=== PATIENT | female | born 1975 | race Caucasian/White ===

== ENCOUNTER 2018-05-13 17:11 | Emergency (ER) | payer OTHER ==
[~2018-05-13] VITALS: Ht 160 cm; Wt 61.2 kg
[~2018-05-13 17:11] MED LIST: ? ANTIBIOTIC; BACTRIM DS TAB1 EACH PO; BUPRENORPHIN-N1 EACH SL; IBUPROFEN 800800 M1 PO; KEFLEX500 MG PO; NORCO 5-325 TA1 EACH PO; NORFLEX100 MG PO; ROBAXIN500 MG PO; XANAX 0.5 MG0.5 M1 PO
[2018-05-13] MEDS ORDERED: ADDERALL 20 MG20 MG PO (17:38)
[2018-05-13 18:35] VITALS: BP 135/85
== END 2018-05-13 18:36 | disposition home or self-care (01) ==
LOC: M.ERS 17:11
DX: S61.411A Laceration without foreign body of right hand, initial encounter (principal); W25.XXXA Contact with sharp glass, initial encounter; Y92.89 Other specified places as the place of occurrence of the external cause; Y93.G1 Activity, food preparation and clean up; Y99.8 Other external cause status

== ENCOUNTER 2018-05-15 13:20 | Emergency (ER) | payer OTHER ==
[~2018-05-15] VITALS: Ht 160 cm; Wt 61.2 kg
[~2018-05-15 13:20] MED LIST changes: +ADDERALL 20 MG20 MG PO
[2018-05-15] MEDS ORDERED: KEFLEX500 M1 PO (13:44)
[2018-05-15 13:55] VITALS: BP 151/90
== END 2018-05-15 13:56 | disposition home or self-care (01) ==
LOC: M.ERS 13:20
DX: S61.411D Laceration without foreign body of right hand, subsequent encounter (principal); X58.XXXD Exposure to other specified factors, subsequent encounter

== ENCOUNTER 2021-02-24 21:14 | Emergency (ER) | payer OTHER, MEDICAID ==
[~2021-02-24] VITALS: Ht 157.5 cm; Wt 61.2 kg
[~2021-02-24 21:14] MED LIST changes: +KEFLEX500 M1 PO
[2021-02-24] MEDS ORDERED: XANAX 0.5 MG0.5 M1 PO (21:42)
[2021-02-24 22:17] LABS: URINE BILIRUBIN NEGATIVE (Negative); URINE BLOOD 3+ (Negative); URINE COLOR YELLOW; URINE GLUCOSE-RANDOM NEGATIVE (Negative); URINE KETONES NEGATIVE (Negative); URINE PROTEIN 1+ (Negative); URINE UROBILINOGEN 0.2 E.U./dl (0.2-1.0)
[2021-02-24 22:18] LABS: URINE CLARITY CLOUDY; URINE LEUKOCYTES-REFLEX 3+ (Negative); URINE NITRITE-REFLEX POSITIVE (Negative)
[2021-02-24 22:24] LABS: ABSOLUTE BASOPHILS 0.1 thou/uL (0.0-0.2); ABSOLUTE EOSINOPHILS 0.2 thou/uL (0.0-0.7); ABSOLUTE LYMPHOCYTES 2.9 thou/uL (0.8-5.3); ABSOLUTE MONOCYTES 0.5 thou/uL (0.0-1.2); ABSOLUTE NEUTROPHILS 4.9 thou/uL (1.6-8.1); BASOPHILS 0.8 %; EOSINOPHILS 2.8 %; HEMOGLOBIN 14.6 gm/dL (12.0-15.0); LYMPHOCYTES 33.9 %; MCH 29.9 pg (26.0-34.0); MCHC 34.8 g/dL (28.0-37.0); MCV 85.8 fL (80.0-100.0); MONOCYTES 5.2 %; NUCLEATED RBCS 0 /100WBC; PLATELET COUNT* 251 thou/uL (150-400); POLYS 57.3 %; RDW-CV 13.6 % (10.5-14.5); WBC 8.6 thou/uL (4.0-11.0)
[2021-02-24 22:29] LABS: SQUAMOUS 4-10 Moderate /LPF (0-3)
[2021-02-24 22:30] LABS: BACTERIA-REFLEX >30 Many /HPF (None Seen); CASTS None Seen /LPF (None Seen); CRYSTALS None Seen /LPF (None Seen); URINE RBC 3-10 Few /HPF (0-2); URINE WBC-REFLEX >25 Many /HPF (0-5)
[2021-02-24 22:33] LABS: AMP/METHAMP Negative (Negative); BARBITURATES Negative (Negative); BENZODIAZEPINES Negative (Negative); COCAINE POSITIVE (Negative); METHADONE Negative (Negative); OPIATES Negative (Negative); PCP Negative (Negative); THC Negative (Negative)
[2021-02-24 23:10] LABS: CALCIUM 8.7 mg/dL (8.5-10.1); CREATININE 0.9 mg/dL (0.6-1.3); POTASSIUM 3.4 mmol/L (3.5-5.1)
[2021-02-24] MEDS ORDERED: AUGMENTIN 500-1 EACH PO (23:14)
[2021-02-24 23:15] LABS: ALBUMIN 3.6 g/dL (3.4-5.0); TOTAL BILIRUBIN 0.4 mg/dL (<0.1-1.0); TOTAL PROTEIN 7.1 g/dL (6.4-8.2)
[2021-02-25 00:02] VITALS: BP 148/72
== END 2021-02-25 00:02 | disposition home or self-care (01) ==
LOC: M.ERS 21:14
PROVIDERS: Personal Emergency Response Attendant
DX: N39.0 Urinary tract infection, site not specified (principal); F14.129 Cocaine abuse with intoxication, unspecified; F17.210 Nicotine dependence, cigarettes, uncomplicated; Z79.899 Other long term (current) drug therapy

== ENCOUNTER 2021-04-28 02:01 | Emergency (ER) | payer OTHER, MEDICAID ==
[~2021-04-28] VITALS: Ht 160 cm; Wt 61.2 kg
[~2021-04-28 02:01] MED LIST changes: +AUGMENTIN 500-1 EACH PO
[2021-04-28 02:08] VITALS: BP 170/101
[2021-04-28] MEDS ORDERED: DOXYCYCLINE 10100 MG PO (03:30)
== END 2021-04-28 04:07 | disposition home or self-care (01) ==
LOC: M.ERS 02:01
DX: L30.9 Dermatitis, unspecified (principal); F41.9 Anxiety disorder, unspecified; Z79.899 Other long term (current) drug therapy